=== PATIENT | female | born 2000 | race African-American/Black ===

== ENCOUNTER 2022-07-17 08:08 | Emergency (ER) | payer MEDICAID, OTHER ==
[~2022-07-17] VITALS: Ht 172.7 cm; Wt 100.0 kg
[2022-07-17] MEDS ORDERED: LIDOCAINE HCL 1% 20ML VIAL (Pyxis) INJ INFIL ONE (08:30)
[2022-07-17] MEDS ORDERED: ACETAMINOPHEN 325MG TABLET PO ONE (09:15)
[2022-07-17] MEDS ORDERED: SULF1TAB48 MT (09:43)
[2022-07-17] MEDS ORDERED: ACET-2708 MT (09:43)
[2022-07-17 10:01] VITALS: BP 130/74
== END 2022-07-17 10:02 | disposition home or self-care (01) ==
LOC: ER 08:08
DX: L02.411 Cutaneous abscess of right axilla (principal); J45.909 Unspecified asthma, uncomplicated
CPT/HCPCS: 10060; 81025; 99283; J3490; Z7610; 99282

== ENCOUNTER → 2023-03-07 | Emergency (ER) | payer MEDICAID ==
[~2023-03-07] VITALS: Ht 172.7 cm; Wt 96.0 kg
[~2023-03-07] MED LIST: ACET-2708 MT; CLOT15CR27 TP; NAPR-681 MT; SULF1TAB48 MT
[2023-03-07 01:43] VITALS: BP 127/75; PULSE 80; RESP 14; TEMP 98.5; O2SAT 98
== END ==
LOC: ER 00:58
DX: S91.114A Laceration without foreign body of right lesser toe(s) without damage to nail, initial encounter (principal); J45.909 Unspecified asthma, uncomplicated; L03.031 Cellulitis of right toe; W26.8XXA Contact with other sharp object(s), not elsewhere classified, initial encounter; Y93.89 Activity, other specified; Y92.89 Other specified places as the place of occurrence of the external cause; Y99.8 Other external cause status
CPT/HCPCS: 73630; 99283